=== PATIENT | male | born 2000 | race American Indian/Alaskan Native ===

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

== ENCOUNTER 2021-02-05 22:06 | Emergency (ER) | payer OTHER ==
--- NOTE | 2021-02-06 01:15 | XRay Report ---
INDICATION FOR STUDY: right hip pain TECHNIQUE: AP and lateral views of the hip was obtained as well as AP pelvis. FINDINGS: The hip is well mineralized. Articular space is well maintained. No evidence of a dislocation. There is no evidence of fracture. There is no radiographic evidence of hip effusion. IMPRESSION: Normal examination of the hip. Signer Name: Cristian Davalos MD Signed: 02/06/2021 1:11 AM Workstation Name: [id number]
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
[2021-02-06] MEDS ORDERED: HYDROcodone/ACETAMINOPHEN 5-325 MG TAB PO STA (03:36)
[2021-02-06 03:42] VITALS: BP 117/82
== END 2021-02-06 03:43 | disposition home or self-care (01) ==
LOC: EDSEX → ED 22:06
DX: M79.18 Myalgia, other site (principal); Z98.890 Other specified postprocedural states; Z79.899 Other long term (current) drug therapy; V49.49XA Driver injured in collision with other motor vehicles in traffic accident, initial encounter; Y92.410 Unspecified street and highway as the place of occurrence of the external cause; Y93.89 Activity, other specified; Y99.8 Other external cause status

== ENCOUNTER 2021-09-15 00:18 | Emergency (ER) | payer SELFPAY ==
[2021-09-15] MEDS ORDERED: NORepinephrine/NS 8 MG-250 ML 0 MG/0 ML INFUS..BTL IV ONE (00:43)
--- NOTE | 2021-09-15 02:56 | Emergency Department Report ---
ED Psych HPI - General Chief Complaint: Chest Pain Stated Complaint: CHEST PAIN Time Seen by Provider: 09/15/21 02:49 Source: EMS Mode of arrival: Stretcher - History of Present Illness Initial Comments: Patient is 20 years old female with history of anxiety according to the patient. Patient presented to the ER for mental health evaluation. Patient stated that she told the EMS that she have chest pain but she did not. Patient speaking a very soft tone and she kept moving constantly while she is talking. Patient stated that she is having thoughts of hurting herself but she does not have a plan. Patient denied any auditory or visual hallucination. No homicidal ideation. MD Complaint: suicidal ideation - Related Data Previous Rx's Medication Instructions Recorded Last Taken Type Ketorolac [Toradol] 10 mg PO Q6H PRN #14 tablet 02/06/21 Unknown Rx methOCARBAMOL [Robaxin TAB] 750 mg PO Q8H #15 tablet 02/06/[address] [Ella MEDEL] 250 mg PO BID 30 Days #60 tablet 09/18/21 Unknown Rx FLUoxetine [PROzac] 10 mg PO QDAY 30 Days #30 tablet 09/18/21 Unknown Rx OLANzapine [ZyPREXA] 5 mg PO QHS 30 Days #30 tablet 09/18/21 Unknown Rx Allergies Allergy/AdvReac Type Severity Reaction Status Date / Time No Known Allergies Allergy Verified 09/15/21 00:28 ED Review of Systems ROS: Stated complaint: CHEST PAIN Other details as noted in HPI Comment: All other systems reviewed and negative Constitutional: denies: chills, fever Respiratory: denies: cough, shortness of breath, SOB with exertion Cardiovascular: denies: chest pain, palpitations Gastrointestinal: denies: abdominal pain, nausea, vomiting Neurological: denies: headache, weakness, numbness, paresthesias, confusion, abnormal gait ED Past Medical Hx - Past Medical History Additional medical history: thyroid. Transgender - Surgical History Additional Surgical History: thyroid - Social History Smoking Status: Never Smoker Substance Use Type: None - Medications Home Medications: Home Medications Medication Instructions Recorded Confirmed Last Taken Type Ketorolac [Toradol] 10 mg PO Q6H PRN #14 tablet 02/06/21 Unknown Rx methOCARBAMOL [Robaxin TAB] 750 mg PO Q8H #15 tablet 02/06/[address] [DepaKOTE DR] 250 mg PO BID 30 Days #60 tablet 09/18/21 Unknown Rx FLUoxetine [PROzac] 10 mg PO QDAY 30 Days #30 tablet 09/18/21 Unknown Rx OLANzapine [ZyPREXA] 5 mg PO QHS 30 Days #30 tablet 09/18/21 Unknown Rx ED Physical Exam - General Limitations: No Limitations General appearance: alert, in no apparent distress - Head Head exam: Present: atraumatic, normocephalic, normal inspection - Eye Eye exam: Present: normal appearance - ENT ENT exam: Present: normal exam, normal orophraynx, mucous membranes moist - Neck Neck exam: Present: normal inspection, full ROM. Absent: tenderness, meningismus - Respiratory Respiratory exam: Present: normal lung sounds bilaterally - Cardiovascular Cardiovascular Exam: Present: regular rate, normal rhythm, normal heart sounds - GI/Abdominal GI/Abdominal exam: Present: soft, normal bowel sounds. Absent: distended, tenderness, guarding, rebound, rigid, mass, bruit, pulsatile mass, hernia - Extremities Exam Extremities exam: Present: normal inspection, full ROM. Absent: tenderness - Back Exam Back exam: Present: normal inspection, full ROM. Absent: CVA tenderness (R), CVA tenderness (L) - Neurological Exam Neurological exam: Present: alert, oriented X3, CN II-XII intact - Psychiatric Psychiatric exam: Present: anxious, suicidal ideation. Absent: homicidal i deation - Skin Skin exam: Present: warm, intact, normal color ED Course Vital Signs 09/15/21 09/15/21 09/15/21 00:25 03:22 03:25 Temperature 98.7 F 97.9 F Pulse Rate 74 77 Respiratory 18 18 18 Rate Blood Pressure Blood Pressure 125/80 127/80 [Left] O2 Sat by Pulse 99 100 100 Oximetry 09/15/21 09/15/21 09/16/21 11:23 20:15 12:20 Temperature 98 F 98.4 F 98.6 F Pulse Rate 76 99 H 90 Respiratory 18 18 18 Rate Blood Pressure 145/77 Blood Pressure 137/79 112/79 [Left] O2 Sat by Pulse 98 97 98 Oximetry 09/16/21 09/17/21 09/17/21 23:40 04:54 11:32 Temperature 97.6 F Pulse Rate 75 Respiratory 18 Rate Blood Pressure Blood Pressure 108/71 [Left] O2 Sat by Pulse 98 98 98 Oximetry 09/17/21 09/17/21 09/18/21 11:51 20:06 07:11 Temperature 98.2 F 97.5 F L Pulse Rate 67 68 Respiratory 18 18 18 Rate Blood Pressure Blood Pressure 110/71 113/56 [Left] O2 Sat by Pulse 100 98 98 Oximetry 09/18/21 07:43 Temperature 98.8 F Pulse Rate 62 Respiratory 20 Rate Blood Pressure Blood Pressure 116/71 [Left] O2 Sat by Pulse 100 Oximetry ED Medical Decision Making - Lab Data Result diagrams: 09/15/21 03:06 09/18/21 09:12 Critical care attestation.: If time is entered above; I have spent that time in minutes in the direct care of this critically ill patient, excluding procedure time. ED Disposition Clinical Impression: Depression, Suicidal ideation Disposition: HOME / SELF CARE / HOMELESS Is pt being admited?: No Condition: Stable Instructions: Persistent Depressive Disorder, Adult, Suicidal Feelings: How to Help Yourself Additional Instructions: Please follow-up using the following outpatient resources. Return to the emergency department for any emergent medical/health concerns Professional and Agency Contacts To help [facility] (03/04) [place] Crisis Line: Suicide Prevention Line: Crisis Text Line: Text START to 339110 Emergency: 911 Outpatient COMMUNITY Behavioral Health Resources: [facility]: [facility] [address], [place] [address] [facility] [address] [place] [address] Monday thru Monday - 8am - 5pm Call to schedule an assessment for mental health and substance abuse programs [facility] Address: [address] [place] [address] Monday thru Monday- 7am-2pm [facility] Address: [address] [place] [address] Monday thrmonday: 8:30AM-5PM Prescriptions: OLANzapine [ZyPREXA] 5 mg PO QHS 30 Days #[address] [Ella MEDEL] 250 mg PO BID 30 Days #60 tablet FLUoxetine [PROzac] 10 mg PO QDAY 30 Days #30 tablet Referrals: [facility] [Provider Group] - 3-5 Days
[2021-09-15 03:38] LABS: BUN/Creatinine Ratio 11; Blood Urea Nitrogen 9 mg/dL (9-20); Calcium 8.4 mg/dL (8.4-10.2); Hemolysis Index 2
[2021-09-15 03:39] LABS: Basophils % (Auto) 0.3 % (0.0-1.8); Eosinophils % (Auto) 0.7 % (0.0-4.3); Hematocrit 35.3 % (35.5-45.6); Hemoglobin 10.9 gm/dl (11.8-15.2); Lymphocytes # (Auto) 1.1 K/mm3 (1.2-5.4); Lymphocytes % (Auto) 29.2 % (13.4-35.0); Mean Corpuscular HGB Conc 31 % (32-34); Mean Corpuscular Volume 75 fl (84-94); Monocytes # (Auto) 0.4 K/mm3 (0.0-0.8); Monocytes % (Auto) 10.3 % (0.0-7.3); Platelet Count 304 K/mm3 (140-440); Red Cell Distribution Width 16.3 % (13.2-15.2)
[2021-09-15] MEDS ORDERED: ZIPRASIDONE MESYLATE 20 MG VIAL IM ONE ×2 (04:13→07:02)
[2021-09-15 08:19] LABS: Bilirubin,Urine NEG (Negative); Blood,Urine NEG (Negative); Color,Urine Yellow (Yellow); Mucus,Urine FEW /HPF; Protein,Urine <15 mg/dL mg/dL (Negative)
[2021-09-15 08:20] LABS: RBC,Urine < 1.0 /HPF (0.0-6.0)
[2021-09-15 08:27] LABS: Amphetamine Screen,Urine Negative; Benzodiazepines Screen,Urine Negative; Cannabinoid Screen,Urine Negative; Cocaine Screen,Urine Negative; Methadone Screen,Urine Negative; Opiate Screen,Urine Negative
--- NOTE | 2021-09-15 10:41 | Consultation ---
History of Present Illness - Reason for Consult Consult date: 09/15/21 Reason for consult: SI - History of Present Psychiatric Illness The patient was seen today. She is a transgender male. The patient says she called the ambulance because she was having chest pain and had bad anxiety. She says "I was feeling angry." The patient then says she started having suicidal t houghts, and feels like wrapping a sheet around her neck. She says she lives with a friend. She denies any illicit drug use, alcohol or nicotine. The patient says she takes olanzapine 15mg but never started it because her "funds were low." She denies hallucinations of any kind. When asking the patient was she taking the olanzapine for bipolar or schizophrenia, she replies "no, I don't have none of that." She then says "I was just taking it for anxiety but like I said I never started it cause I couldn't afford to pick it up." REVIEW OF SYSTEMS Constitutional: Negative for weight loss ENT: Negative for stridor Respiratory: Negative for cough or hemoptysis All other systems reviewed and are negative MENTAL STATUS EXAMINATION General Appearance and Behavior: Age appropriate, good hygiene, wearing appropriate clothes. calm, cooperative Cooperation: Cooperative Psychomotor Behavior: Psychomotor normal Mood: Depressed Affect and affective range: congruent with stated mood Thought Process: circumstantial Thought Content: None Speech: normal tone and pace Suicidal Ideation: Yes Homicidal Ideation: Denies Hallucinations: Denies Delusions: None elicited Impulse Control: Limited Insight and Judgment: Limited insight and fair judgment Memory: Limited Attention: distracted Orientation: a/x o 3 Assessment (1) Mood Disorder, Unspecified Treatment Plan 1013 Olanzapine 7.5mg po daily Prozac 10mg po daily Medical: per primary Disposition: Recommend acute psychiatric inpatient treatment Will follow. Thanks Case staffed with Dr. Arriola Medications and Allergies Allergies Allergy/AdvReac Type Severity Reaction Status Date / Time No Known Allergies Allergy Verified 09/15/21 00:28 Home Medications Medication Instructions Recorded Confirmed Last Taken Type Ketorolac [Toradol] 10 mg PO Q6H PRN #14 tablet 02/06/21 Unknown Rx methOCARBAMOL [Robaxin TAB] 750 mg PO Q8H #15 tablet 02/06/21 Unknown Rx Mental Status Exam - Vital signs Last Vital Signs Temp 97.9 F 01/05/22 03:25 Pulse 77 09/15/21 03:25 Resp 18 09/15/21 03:25 BP 127/80 09/15/21 03:25 Pulse Ox 100 09/15/21 03:25 Results Result Diagrams: 09/15/21 03:06 09/15/21 03:06 Abnormal lab results 09/15/21 09/15/21 09/15/21 Range/Units 03:06 03:06 03:06 WBC 3.8 L (4.5-11.0) K/mm3 Hgb 10.9 L (11.8-15.2) gm/dl Hct 35.3 L (35.5-45.6) % MCV 75 L (84-94) fl MCH 23 L (28-32) pg MCHC 31 L (32-34) % RDW 16.3 H (13.2-15.2) % [place] % (Auto) 10.3 H (0.0-7.3) % Lymph # (Auto) 1.1 L (1.2-5.4) K/mm3 Potassium 3.4 L (3.6-5.0) mmol/L Salicylates < 0.3 L (2.8-20.0) mg/dL Acetaminophen (10.0-30.0) ug/mL 09/15/21 Range/Units 03:06 WBC (4.5-11.0) K/mm3 Hgb (11.8-15.2) gm/dl Hct (35.5-45.6) % MCV (84-94) fl MCH (28-32) pg MCHC (32-34) % RDW (13.2-15.2) % [place] % (Auto) (0.0-7.3) % Lymph # (Auto) (1.2-5.4) K/mm3 Potassium (3.6-5.0) mmol/L Salicylates (2.8-20.0) mg/dL Acetaminophen 5.0 L (10.0-30.0) ug/mL All other labs normal.
[2021-09-15] MEDS: FLUoxetine 10 MG TAB PO SCH (11:11)
[2021-09-16] MEDS: FLUoxetine 10 MG TAB PO SCH (09:48)
--- NOTE | 2021-09-16 10:02 | Progress Note ---
Subjective - Reason for Consult Consult date: 09/16/21 Reason for consult: SI - Chief Complaint Chief complaint: The patient was seen today. She says "I feel better." The patient says "I'm upset. They gave me a shot in my arm." she says "I still feel like putting a sheet around my neck. I'm trying not to think like that though." She denies hallucinations. REVIEW OF SYSTEMS Constitutional: Negative for weight loss ENT: Negative for stridor Respiratory: Negative for cough or hemoptysis All other systems reviewed and are negative MENTAL STATUS EXAMINATION General Appearance and Behavior: Age appropriate, good hygiene, wearing appropriate clothes. calm, cooperative Cooperation: Cooperative Psychomotor Behavior: Psychomotor normal Mood: Depressed Affect and affective range: congruent with stated mood Thought Process: circumstantial Thought Content: None Speech: normal tone and pace Suicidal Ideation: Yes Homicidal Ideation: Denies Hallucinations: Denies Delusions: None elicited Impulse Control: Limited Insight and Judgment: Limited insight and fair judgment Memory: Limited Attention: distracted Orientation: a/x o 3 Assessment (1) Mood Disorder, Unspecified Treatment Plan [address] 125mg po BID Olanzapine 7.5mg po daily Prozac 10mg po daily Medical: per primary Disposition: Recommend acute psychiatric inpatient treatment Will follow. Thanks Case staffed with Dr. Arriola Mental Status Exam - Vital signs Last Vital Signs Temp 98.4 F 09/15/21 20:15 Pulse 99 H 09/15/21 20:15 Resp 18 09/15/21 20:15 BP 137/79 09/15/21 20:15 Pulse Ox 97 09/15/21 20:15
--- NOTE | 2021-09-16 11:02 | Emergency Department Report ---
Blank Doc - Documentation Documentation: Patient is currently resting. She still has suicidal thoughts and the plan is still for psychiatric admission. We are continuing to await placement. There were no new events throughout the course of the night.
[2021-09-16] MEDS: DIVALPROEX DR 125 MG TAB PO SCH ×2 (14:51→21:51)
[2021-09-16] MEDS ORDERED: LEVOTHYROXINE 112 MCG, LEVOTHYROXINE 25 MCG PO SCH (18:00)
[2021-09-16] MEDS: LEVOTHYROXINE 112 MCG TAB PO SCH (19:03)
[2021-09-16] MEDS: LEVOTHYROXINE 25 MCG TAB PO SCH (19:03)
[2021-09-17] MEDS: DIVALPROEX DR 125 MG TAB PO SCH (11:08)
[2021-09-17] MEDS: FLUoxetine 10 MG TAB PO SCH (11:08)
--- NOTE | 2021-09-17 11:25 | Progress Note ---
Subjective - Reason for Consult Consult date: 09/17/21 Reason for consult: suicidal ideation - Chief Complaint Chief complaint: The patient was seen today. She reports doing well. The patient initially denies suicidal/ homicidal ideation and denied hallucinations but when she was told she was going to be discharged she states "I still feel like putting a sheet around my neck." The patient seem to be confused. REVIEW OF SYSTEMS Constitutional: Negative for weight loss ENT: Negative for stridor Respiratory: Negative for cough or hemoptysis All other systems reviewed and are negative MENTAL STATUS EXAMINATION General Appearance and Behavior: Age appropriate, good hygiene, wearing appropriate clothes. calm, cooperative Cooperation: Cooperative Psychomotor Behavior: Psychomotor normal Mood: "ok" Affect and affective range: Incongruent with stated mood Thought Process: circumstantial Thought Content: None Speech: normal tone and pace Suicidal Ideation: Yes Homicidal Ideation: Denies Hallucinations: Denies Delusions: None elicited Impulse Control: Limited Insight and Judgment: Limited insight and fair judgment Memory: Limited Attention: distracted Orientation: a/x o 3 Assessment (1) Mood Disorder, Unspecified Treatment Plan [address] 125mg po BID Olanzapine 7.5mg po daily Prozac 10mg po daily Medical: per primary Disposition: Recommend acute psychiatric inpatient treatment Will follow. Thanks Case staffed with Dr. Arriola Mental Status Exam - Vital signs Last Vital Signs Temp 97.6 F 09/16/21 23:40 Pulse 75 09/16/21 23:40 Resp 18 09/16/21 23:40 BP 108/71 09/16/21 23:40 Pulse Ox 98 09/17/21 04:54
--- NOTE | 2021-09-17 12:19 | Event Note ---
Date: 09/17/21 20-year-old male here with suicidal ideations. He was seen by my colleague and was medically cleared for psychiatric evaluation and placement. Vital signs reviewed and are stable. There were no acute events overnight. Currently awaiting inpatient psychiatric facility placement.
[2021-09-18 07:44] VITALS: BP 116/71
[2021-09-18] MEDS: LEVOTHYROXINE 112 MCG TAB PO SCH ×2 (08:27→10:32)
[2021-09-18] MEDS: LEVOTHYROXINE 25 MCG TAB PO SCH ×2 (08:28→10:32)
[2021-09-18] MEDS ORDERED: SODIUM CHLORIDE 0.9% 1000 ML 1,000 ML ONE (09:45)
[2021-09-18] MEDS: DIVALPROEX DR 125 MG TAB PO SCH (10:31)
[2021-09-18] MEDS: FLUoxetine 10 MG TAB PO SCH (10:31)
--- NOTE | 2021-09-18 11:02 | Progress Note ---
Subjective - Reason for Consult Consult date: 09/18/21 Reason for consult: mental health evaluation - Chief Complaint Chief complaint: The patient was seen today. She reports doing well. The patient states sleep and appetite as good. She denies any current suicidal/homicidal ideation and denies hallucinations. REVIEW OF SYSTEMS Constitutional: Negative for weight loss ENT: Negative for stridor Respiratory: Negative for cough or hemoptysis All other systems reviewed and are negative MENTAL STATUS EXAMINATION General Appearance and Behavior: Age appropriate, good hygiene, wearing appropriate clothes. calm, cooperative Cooperation: Cooperative Psychomotor Behavior: Psychomotor normal Mood: "ok" Affect and affective range: Incongruent with stated mood Thought Process: Goal directed Thought Content: Reality oriented Speech: normal tone and pace Suicidal Ideation: Denies Homicidal Ideation: Denies Hallucinations: Denies Delusions: None elicited Impulse Control: Limited Insight and Judgment: Limited insight and fair judgment Memory: Limited Attention: distracted Orientation: a/x o 3 Assessment (1) Mood Disorder, Unspecified Treatment Plan Discontinue [address] 250mg po BID Continue Olanzapine 5mg po QHS Continue Prozac 10mg po daily Medical: per primary Disposition: Do not recommend acute psychiatric inpatient treatment. The blueprint duplicator will provide patient with psychiatric outpatient resources. The patient understands that if suicidal ideas, homicidal ideas or any endangering thoughts/behaviors arise, she should immediately seek for emergent assistance including but not limited to crisis hotline and emergency room. The patient should will follow up with out patient psychiatrist and PCP within 7- 14 days of discharge. Will sign off. Thanks Case staffed with Dr. Arriola Mental Status Exam - Vital signs Last Vital Signs Temp 98.8 F 09/18/21 07:43 Pulse 62 09/18/21 07:43 Resp 20 09/18/21 07:43 BP 116/71 09/18/21 07:43 Pulse Ox 100 09/18/21 07:43
--- NOTE | 2021-09-18 11:42 | Event Note ---
Date: 09/18/21 20-year-old male here with suicidal ideations. Seen by my colleague and was medically cleared for psychiatric evaluation placement. Vital signs reviewed and are stable. There were no acute events overnight. The patient was seen by the mental health/psychiatry team today who recommended discontinuing the 1013 and discharging the patient with outpatient resources.
== END 2021-09-18 13:10 | disposition home or self-care (01) ==
LOC: ED 00:18
DX: F32.9 Major depressive disorder, single episode, unspecified (principal); R45.851 Suicidal ideations; Z20.822 Contact with and (suspected) exposure to COVID-19
CPT/HCPCS: 36415; 80048; 80307; 81001; 84132; 84703; 85025; 96372; 99284; J3486; J7030; U0003; 80320; J2354; Q0162; G0480